=== PATIENT | female | born 1980 | race Caucasian/White ===

== ENCOUNTER → 2020-03-23 | Outpatient (CLI) | payer OTHER ==
[~2020-03-23] MED LIST: FERROUS SULFAT324 MG PO; FLINTSTONES1 EAC1 PO; FLUTICASONE SPRAY; IBUPROFEN200 MG PO; NAPROSYN500 MG PO; NATAZIA 28 TAB1 EACH PO; NORCO 5-325 TA1 EACH PO
[2020-03-23 12:38] LABS: HEMOGLOBIN 10.8 gm/dl (12.3-15.3); RED BLOOD COUNT 4.5 M/UL (4.00-5.10)
== END ==
LOC: OPSV2 11:00
PROVIDERS: Obstetrics & Gynecology
DX: Z01.812 Encounter for preprocedural laboratory examination (principal); N80.9 Endometriosis, unspecified
CPT/HCPCS: 36415; 81001; 85025

== ENCOUNTER 2020-03-25 06:35 | Day surgery (SDC) | payer OTHER ==
[~2020-03-25] VITALS: Ht 160 cm; Wt 771.6 kg
[~2020-03-25 06:35] MED LIST changes: -NAPROSYN500 MG PO; -NORCO 5-325 TA1 EACH PO
[2020-03-26 05:19] LABS: HEMOGLOBIN 10.4 gm/dl (12.3-15.3)
[2020-03-26] MEDS ORDERED: NORCO 5-325 TA1 EACH PO (08:02)
[2020-03-26 10:35] LABS: HEMOGLOBIN 10.6 gm/dl (12.3-15.3)
[2020-03-26] MEDS ORDERED: NAPROSYN500 MG PO (15:13)
== END 2020-03-26 16:25 | disposition home or self-care (01) ==
LOC: OR 06:35 → OB 11:39 → OR 11:39 → OB 03-26 11:04 → OR 03-26 16:25
PROVIDERS: Obstetrics & Gynecology
PROC: 0UT74ZZ Resection of Bilateral Fallopian Tubes, Percutaneous Endoscopic Approach (ICD-10-PCS; 2020-03-25)
PROC: 0UT94ZZ Resection of Uterus, Percutaneous Endoscopic Approach (ICD-10-PCS; principal; 2020-03-25 08:30)
PROC: 0UT24ZZ Resection of Bilateral Ovaries, Percutaneous Endoscopic Approach (ICD-10-PCS; 2020-03-25 08:30)
DX: N80.0 Endometriosis of uterus (principal); D25.1 Intramural leiomyoma of uterus; N72 Inflammatory disease of cervix uteri; N73.6 Female pelvic peritoneal adhesions (postinfective); M79.7 Fibromyalgia; Z88.8 Allergy status to other drugs, medicaments and biological substances; Z79.899 Other long term (current) drug therapy; Z20.822 Contact with and (suspected) exposure to COVID-19
CPT/HCPCS: 36415; 84703; 85014; 85018; C1769; G0378; J0690; J2001; J2250; J2270; J2405; J2550; J2704; J2710; J2795; J3010; J7120